=== PATIENT | male | born 1970 | race Two or more races ===

== ENCOUNTER 2023-09-26 20:48 | Inpatient (IN) | payer BC ==
[~2023-09-26] VITALS: Ht 167.6 cm; Wt 50.0 kg
[2023-09-26 21:31] LABS: EOSINOPHILS % (AUTO) 0 % (1.0-6.0); HEMATOCRIT 25.1 % (41-53); HEMOGLOBIN 8.4 g/dL (13.5-17.5); LYMPHOCYTES # (AUTO) 1.6 K/uL (1.0-4.8); LYMPHOCYTES % (AUTO) 12.2 % (22.0-44.0); MEAN CORPUSCULAR HEMOGLOBIN 27.5 pg (26.0-34.0); MEAN CORPUSCULAR HGB CONC 33.3 G/dL (31.0-37.0); MEAN CORPUSCULAR VOLUME 82 fL (80-100); MONOCYTES # (AUTO) 1.5 K/uL (0.1-1.0); MONOCYTES % (AUTO) 11.3 % (2.0-9.0); NEUTROPHILS # (AUTO) 9.9 K/uL (1.8-7.7); NEUTROPHILS % (AUTO) 76.5 % (40.0-70.0); PLATELET COUNT (AUTO) 498 K/uL (150-450); RED BLOOD CELL COUNT(AUTO) 3.05 MIL/uL (4.50-5.90); RED CELL DISTRIBUTION WIDTH 17.4 % (11.5-14.5); WHITE BLOOD COUNT (AUTO) 12.9 K/uL (4.5-11.0)
[2023-09-26 21:36] LABS: ANION GAP 9 mmol/L (8-16); CARBON DIOXIDE 27 mmol/L (22-29); CHLORIDE 93 mmol/L (98-107); CREATININE 1.22 mg/dL (0.60-1.30); GLOMERULAR FILTR. RATE CALC > 60 mL/min (>60); GLUCOSE,RANDOM 138 mg/dL (70-110); POTASSIUM 3.8 mmol/L (3.5-5.1); SODIUM SERUM 129 mmol/L (136-145); UREA NITROGEN, BLOOD 16 mg/dL (7-18)
[2023-09-26] MEDS: PANTOPRAZOLE SODIUM 80 MG in SODIUM CHLORIDE 0.9% 100 ML IV SCH ×2 (23:08→23:15)
[2023-09-26] MEDS: PANTOPRAZOLE SODIUM 40 MG/VIAL IVP ONE (23:08)
[2023-09-26] MEDS: SODIUM CHLORIDE 0.9% 1,000 ML IV ONE (23:09)
[2023-09-26] MEDS ORDERED: ACETAMINOPHEN 325 MG TABLET PO PRN (23:15)
[2023-09-26] MEDS ORDERED: ONDANSETRON HCL 4 MG/2 ML VIAL IVP PRN (23:15)
[2023-09-26 23:32] LABS: INR 1.4 (0.9-1.1); PROTHROMBIN TIME 14.9 SEC (9.4-11.6)
[2023-09-26 23:33] LABS: ALBUMIN 1.9 g/dL (3.4-5.0); BILIRUBIN,DIRECT 0.4 mg/dL (0.00-0.20); BILIRUBIN,TOTAL 0.8 mg/dL (0.1-1.0); TOTAL PROTEIN, SERUM 7.7 g/dL (6.4-8.2)
[2023-09-26] MEDS: CefTRIAXone SODIUM 250 MG in DEXTROSE 5%-WATER 50 ML IV ONE (23:50)
[2023-09-27] VITALS (14 sets, daily range): BP systolic 88–113; BP diastolic 54–72; PULSE 92–108; RESP 15–20; TEMP 98.2–99.7
[2023-09-27 00:35] LABS: BASOPHILS % (AUTO) 0.2 % (0.0-2.0); EOSINOPHILS % (AUTO) 0 % (1.0-6.0); HEMATOCRIT 23.1 % (41-53); HEMOGLOBIN 7.6 g/dL (13.5-17.5); LYMPHOCYTES # (AUTO) 1.5 K/uL (1.0-4.8); MEAN CORPUSCULAR HEMOGLOBIN 26.9 pg (26.0-34.0); MEAN CORPUSCULAR HGB CONC 32.7 G/dL (31.0-37.0); MEAN CORPUSCULAR VOLUME 82 fL (80-100); MONOCYTES # (AUTO) 1.3 K/uL (0.1-1.0); MONOCYTES % (AUTO) 10.1 % (2.0-9.0); NEUTROPHILS # (AUTO) 9.8 K/uL (1.8-7.7); NEUTROPHILS % (AUTO) 77.7 % (40.0-70.0); PLATELET COUNT (AUTO) 412 K/uL (150-450); RED BLOOD CELL COUNT(AUTO) 2.81 MIL/uL (4.50-5.90); RED CELL DISTRIBUTION WIDTH 17.5 % (11.5-14.5); WHITE BLOOD COUNT (AUTO) 12.6 K/uL (4.5-11.0)
[2023-09-27] MEDS: DOCUSATE SODIUM 100 MG CAPSULE PO SCH (09:00)
[2023-09-27] MEDS ORDERED: SODIUM CHLORIDE 0.9% 500 ML IV ONE (09:30)
[2023-09-27] MEDS ORDERED: SODIUM CHLORIDE 0.9% 1,000 ML ONE (09:32)
[2023-09-27 09:47] LABS: BASOPHILS % (AUTO) 0.1 % (0.0-2.0); EOSINOPHILS % (AUTO) 0 % (1.0-6.0); LYMPHOCYTES # (AUTO) 1.4 K/uL (1.0-4.8); LYMPHOCYTES % (AUTO) 10.5 % (22.0-44.0); MEAN CORPUSCULAR HEMOGLOBIN 27.1 pg (26.0-34.0); MEAN CORPUSCULAR HGB CONC 32.7 G/dL (31.0-37.0); MEAN CORPUSCULAR VOLUME 83 fL (80-100); MONOCYTES # (AUTO) 1.2 K/uL (0.1-1.0); MONOCYTES % (AUTO) 9.4 % (2.0-9.0); NEUTROPHILS # (AUTO) 10.6 K/uL (1.8-7.7); PLATELET COUNT (AUTO) 396 K/uL (150-450); RED BLOOD CELL COUNT(AUTO) 2.54 MIL/uL (4.50-5.90); RED CELL DISTRIBUTION WIDTH 17.8 % (11.5-14.5); WHITE BLOOD COUNT (AUTO) 13.2 K/uL (4.5-11.0)
[2023-09-27 10:13] LABS: ANION GAP 10 mmol/L (8-16); CALCIUM, TOTAL 8.1 mg/dL (8.8-10.5); CARBON DIOXIDE 26 mmol/L (22-29); CHLORIDE 97 mmol/L (98-107); CREATININE 0.95 mg/dL (0.60-1.30); GLOMERULAR FILTR. RATE CALC > 60 mL/min (>60); GLUCOSE,RANDOM 99 mg/dL (70-110); POTASSIUM 3.8 mmol/L (3.5-5.1); SODIUM SERUM 133 mmol/L (136-145); UREA NITROGEN, BLOOD 13 mg/dL (7-18)
[2023-09-27 10:14] LABS: HEMOGLOBIN 6.9 g/dL (13.5-17.5)
[2023-09-27] MEDS: SODIUM CHLORIDE 0.9% 1,000 ML IV ONE (10:49)
[2023-09-27] MEDS ORDERED: PROPOFOL 1% ISO-OSM 1000 MG/100 ML BOTTLE IV ONE (12:00)
[2023-09-27] MEDS ORDERED: LIDOCAINE/PF 2% 5 ML VIAL IM ONE (12:00)
[2023-09-27 12:35] LABS: APPEARANCE,URINE CLEAR (CLEAR); BILIRUBIN,URINE NEGATIVE (NEGATIVE); COLOR,URINE YELLOW (YELLOW); GLUCOSE, URINE (UA) NEGATIVE (NEGATIVE); KETONES,URINE NEGATIVE (NEGATIVE); LEUKOCYTE ESTERASE ,URINE NEGATIVE (NEGATIVE); NITRATE,URINE NEGATIVE (NEGATIVE); OCCULT BLOOD,URINE SMALL (NEGATIVE); PROTEIN,URINE 100-200,SEE CONFIRM mg/dL (NEGATIVE); UROBILINOGEN,URINE <=1.0 mg/dL (<=1.0)
[2023-09-27 12:56] LABS: SPECIFIC GRAVITIY, URINE > 1.030 (1.003-1.030)
[2023-09-27 13:00] LABS: BACTERIA,URINE Rare /HPF (None Seen); RBC,URINE 0-2 /HPF (0-2); WBC,URINE 0-2 /HPF (0-5)
[2023-09-27 13:01] LABS: SULFOSALICYLIC ACID,URINE 2+ (Negative)
[2023-09-27] MEDS: PEG 3350/NA SULF,BICARB,CL/KCL 4000 ML SOLUTION PO ONE (17:54)
[2023-09-27 22:42] LABS: BASOPHILS % (AUTO) 0.1 % (0.0-2.0); EOSINOPHILS % (AUTO) 0 % (1.0-6.0); HEMOGLOBIN 7.7 g/dL (13.5-17.5); LYMPHOCYTES # (AUTO) 1.1 K/uL (1.0-4.8); LYMPHOCYTES % (AUTO) 10.1 % (22.0-44.0); MEAN CORPUSCULAR HEMOGLOBIN 27.5 pg (26.0-34.0); MEAN CORPUSCULAR HGB CONC 33.4 G/dL (31.0-37.0); MEAN CORPUSCULAR VOLUME 82 fL (80-100); MONOCYTES % (AUTO) 9.1 % (2.0-9.0); NEUTROPHILS # (AUTO) 8.9 K/uL (1.8-7.7); NEUTROPHILS % (AUTO) 80.7 % (40.0-70.0); PLATELET COUNT (AUTO) 338 K/uL (150-450); RED BLOOD CELL COUNT(AUTO) 2.79 MIL/uL (4.50-5.90); RED CELL DISTRIBUTION WIDTH 16.8 % (11.5-14.5)
[2023-09-27 22:55] LABS: MAGNESIUM 2.5 mg/dL (1.80-2.40)
[2023-09-28] VITALS (9 sets, daily range): BP systolic 93–103; BP diastolic 56–66; PULSE 80–97; RESP 15–20; TEMP 98.1–99.4
[2023-09-28] MEDS ORDERED: FentaNYL CITRATE PF 100 MCG/2 ML VIAL ONE ×2 (08:10→13:28)
[2023-09-28] MEDS ORDERED: LIDOCAINE/PF 1% 30 ML VIAL ONE (08:11)
[2023-09-28] MEDS ORDERED: MIDAZOLAM HCL 2 MG/2 ML VIAL ONE (08:11)
[2023-09-28] MEDS ORDERED: SODIUM CHLORIDE 0.9% 1,000 ML ONE (09:41)
[2023-09-28 12:17] LABS: BASOPHILS % (AUTO) 0.1 % (0.0-2.0); EOSINOPHILS % (AUTO) 0 % (1.0-6.0); HEMATOCRIT 24.9 % (41-53); HEMOGLOBIN 8.1 g/dL (13.5-17.5); LYMPHOCYTES # (AUTO) 1.3 K/uL (1.0-4.8); LYMPHOCYTES % (AUTO) 11.8 % (22.0-44.0); MEAN CORPUSCULAR HEMOGLOBIN 26.8 pg (26.0-34.0); MEAN CORPUSCULAR HGB CONC 32.6 G/dL (31.0-37.0); MEAN CORPUSCULAR VOLUME 82 fL (80-100); MONOCYTES # (AUTO) 0.8 K/uL (0.1-1.0); MONOCYTES % (AUTO) 7.4 % (2.0-9.0); NEUTROPHILS # (AUTO) 8.9 K/uL (1.8-7.7); NEUTROPHILS % (AUTO) 80.7 % (40.0-70.0); PLATELET COUNT (AUTO) 370 K/uL (150-450); RED BLOOD CELL COUNT(AUTO) 3.03 MIL/uL (4.50-5.90); RED CELL DISTRIBUTION WIDTH 17.3 % (11.5-14.5); WHITE BLOOD COUNT (AUTO) 11.1 K/uL (4.5-11.0)
[2023-09-28] MEDS: DEXTROSE 5%-0.45% SODIUM CHL 1,000 ML IV SCH (12:32)
[2023-09-28] MEDS: SODIUM CHLORIDE 0.9% 1,000 ML IV ONE (12:34)
[2023-09-28] MEDS ORDERED: MIDAZOLAM HCL 5 MG/ML VIAL ONE (13:28)
[2023-09-28 13:31] LABS: GLUCOMETER DEV NAME(LOC) 5S.1B; GLUCOSE,POINT OF CARE 84 MG/DL (70-110)
[2023-09-29 00:21] VITALS: BP 106/60; PULSE 86; RESP 15; TEMP 98.2
[2023-09-29] MEDS: DEXTROSE 5%-0.45% SODIUM CHL 1,000 ML IV ONE (01:51)
[2023-09-29 05:17] VITALS: BP 93/60; PULSE 78; RESP 16; TEMP 98.8
[2023-09-29 07:51] VITALS: BP 93/55; PULSE 83; RESP 16; TEMP 98.4
[2023-09-29 07:56] LABS: ANION GAP 8 mmol/L (8-16); CARBON DIOXIDE 25 mmol/L (22-29); CHLORIDE 101 mmol/L (98-107); CREATININE 0.81 mg/dL (0.60-1.30); GLOMERULAR FILTR. RATE CALC > 60 mL/min (>60); GLUCOSE,RANDOM 99 mg/dL (70-110); POTASSIUM 3.1 mmol/L (3.5-5.1); SODIUM SERUM 134 mmol/L (136-145); UREA NITROGEN, BLOOD 9 mg/dL (7-18)
[2023-09-29 07:57] LABS: BASOPHILS % (AUTO) 0.2 % (0.0-2.0); EOSINOPHILS % (AUTO) 0.1 % (1.0-6.0); HEMATOCRIT 24.7 % (41-53); HEMOGLOBIN 8.2 g/dL (13.5-17.5); LYMPHOCYTES # (AUTO) 1.8 K/uL (1.0-4.8); LYMPHOCYTES % (AUTO) 16.6 % (22.0-44.0); MEAN CORPUSCULAR HEMOGLOBIN 27.4 pg (26.0-34.0); MEAN CORPUSCULAR HGB CONC 33.1 G/dL (31.0-37.0); MEAN CORPUSCULAR VOLUME 83 fL (80-100); MONOCYTES # (AUTO) 0.8 K/uL (0.1-1.0); MONOCYTES % (AUTO) 7.9 % (2.0-9.0); NEUTROPHILS # (AUTO) 8.1 K/uL (1.8-7.7); NEUTROPHILS % (AUTO) 75.2 % (40.0-70.0); PLATELET COUNT (AUTO) 361 K/uL (150-450); RED BLOOD CELL COUNT(AUTO) 2.98 MIL/uL (4.50-5.90); RED CELL DISTRIBUTION WIDTH 17.6 % (11.5-14.5); WHITE BLOOD COUNT (AUTO) 10.7 K/uL (4.5-11.0)
[2023-09-29] MEDS ORDERED: CHLORHEXIDINE GLUCONATE 2% TOWELETTE [2'S/6'S] TP ONE (08:30)
[2023-09-29] MEDS ORDERED: SODIUM CHLORIDE 0.9% 1,000 ML ONE ×2 (08:44→08:45)
[2023-09-29] MEDS ORDERED: SODIUM CL IRRIG SOLN BAG 3,000 ML IRRIG ONE (08:44)
[2023-09-29] MEDS: ETHYL ALCOHOL 62% ANTISEPTIC NASAL SANITIZER 0.6 ML AMPUL NASAL ONE (09:42)
[2023-09-29] MEDS ORDERED: RINGERS SOLUTION,LACTATED 1,000 ML IV ONE (10:00)
[2023-09-29 12:02] VITALS: BP 106/68; PULSE 86; RESP 18; TEMP 98.3
[2023-09-29] MEDS: PEG 3350/NA SULF,BICARB,CL/KCL 4000 ML SOLUTION PO ONE (12:59)
[2023-09-29] MEDS ORDERED: POTASSIUM CHL 10 MEQ/WATER 50 ML IV PRN (14:00)
[2023-09-29] MEDS: RINGERS SOLUTION,LACTATED 1,000 ML IV ONE (15:00)
[2023-09-29] MEDS: POTASSIUM CHLORIDE 20 MEQ ER TABLET PO PRN (15:00)
[2023-09-29 15:45] VITALS: BP 99/67; PULSE 91; RESP 16; TEMP 98.1
[2023-09-29 20:00] VITALS: BP 106/70; PULSE 93; RESP 18; TEMP 99.2
[2023-09-30] VITALS (21 sets, daily range): BP systolic 91–113; BP diastolic 59–77; PULSE 62–89; RESP 14–18; TEMP 97.7–98.4; O2SAT 98
[2023-09-30] MEDS: DEXTROSE 5%-0.45% SODIUM CHL 1,000 ML IV SCH (00:24)
[2023-09-30] MEDS ORDERED: RINGERS SOLUTION,LACTATED 1,000 ML IV ONE (06:19)
[2023-09-30] MEDS ORDERED: FentaNYL CITRATE PF 100 MCG/2 ML VIAL ONE (07:18)
[2023-09-30] MEDS ORDERED: ROCURONIUM BROMIDE 10 MG/ML 5 ML VIAL ONE (07:18)
[2023-09-30] MEDS ORDERED: LIDOCAINE/PF 2% 5 ML VIAL ONE (07:18)
[2023-09-30] MEDS ORDERED: TRANEXAMIC ACID 1,000 MG/10 ML VIAL ONE (07:18)
[2023-09-30] MEDS ORDERED: DEXAMETHASONE SOD PHOS 4 MG/ML VIAL ONE (07:18)
[2023-09-30] MEDS ORDERED: MIDAZOLAM HCL 2 MG/2 ML VIAL ONE (07:18)
[2023-09-30] MEDS ORDERED: ACETAMINOPHEN/ISO-OSM 1000 MG/100 ML BOTTLE IV ONE (07:18)
[2023-09-30] MEDS ORDERED: PROPOFOL 1% 20 ML VIAL IVP ONE (07:18)
[2023-09-30] MEDS ORDERED: ONDANSETRON HCL 4 MG/2 ML VIAL ONE (07:18)
[2023-09-30] MEDS ORDERED: SUCCINYLCHOLINE CHLORIDE 20 MG/ML 10 ML VIAL ONE (07:18)
[2023-09-30] MEDS ORDERED: SODIUM CL IRRIG SOLN BAG 3,000 ML IRRIG ONE (07:58)
[2023-09-30] MEDS: ETHYL ALCOHOL 62% ANTISEPTIC NASAL SANITIZER 0.6 ML AMPUL NASAL ONE (08:00)
[2023-09-30] MEDS: RINGERS SOLUTION,LACTATED 1,000 ML IV ONE (08:02)
[2023-09-30] MEDS: CHLORHEXIDINE GLUCONATE 2% TOWELETTE [2'S/6'S] TP ONE (08:02)
[2023-09-30] MEDS ORDERED: NOREPINEPHRINE 8 MG/0.9 % NACL 250 ML IV PRN (09:00)
[2023-09-30] MEDS: LIDOCAINE 2%/EPI 1:200,000/PF 20 ML VIAL ONE (09:30)
[2023-09-30] MEDS ORDERED: PHENYLEPHRINE 200 MG/D5%-WATER 250 ML IV PRN (09:30)
[2023-09-30] MEDS: BUPIVACAINE HCL/PF 0.5% 30 ML VIAL ONE (09:30)
[2023-09-30] MEDS ORDERED: MEPERIDINE-PF 25 MG/ML VIAL IVP PRN (12:15)
[2023-09-30] MEDS ORDERED: FentaNYL CITRATE PF 100 MCG/2 ML VIAL IVP PRN (12:15)
[2023-09-30] MEDS: RINGERS SOLUTION,LACTATED 1,000 ML IV SCH (13:30)
[2023-09-30] MEDS ORDERED: ONDANSETRON HCL 4 MG/2 ML VIAL IVP PRN (13:30)
[2023-09-30] MEDS ORDERED: MORPHINE SULFATE 2 MG/ML SYRINGE IVP PRN (13:30)
[2023-09-30] MEDS ORDERED: MORPHINE SULFATE 4 MG/ML SYRINGE IVP PRN (13:30)
[2023-09-30] MEDS ORDERED: IBUPROFEN 800 MG TABLET PO PRN (13:30)
[2023-09-30] MEDS ORDERED: HYDROmorphone HCL 2 MG/ML SYRINGE ONE (14:08)
[2023-09-30] MEDS: HYDROmorphone HCL 2 MG/ML SYRINGE IVP PRN (14:08)
[2023-09-30 14:31] LABS: ABG BASE EXCESS -0.2 mmol/L (-2.0-3.0); ABG CARBOXYHEMOGLOBIN 0.6 % (0.0-1.5); ABG HCO3 24.4 mmol/L (22.0-26.0); ABG METHEMOGLOBIN 0.3 % (0.0-1.5); ABG OXYGEN CONTENT 8.9 mL/dL (15.0-23.0); ABG OXYGEN SATURATION 94.2 % (95.0-98.0); ABG OXYHEMOGLOBIN 93.4 % (94.0-100.0); ABG PCO2 35 mmHg (35-45); ABG PH 7.447 (7.35-7.450); PO2, ARTERIAL BG 72.5 mmHg (84.0-92.0); SOURCE, BLOOD GAS ARTERIAL; TEMPERATURE, FAHRENHEIT, BG 98.1 FAHREN (96.0-98.6)
[2023-09-30 14:35] LABS: ABG TOTAL HEMOGLOBIN 6.7 G/dL (12.0-18.0); O2 DEVICE,BLOOD GAS ROOM AIR (ROOM AIR); SITE, BLOOD GAS ARTERIAL LINE
[2023-09-30] MEDS: CeFAZolin 1 GM/DEXTROSE 50 ML IV SCH (17:11)
[2023-09-30] MEDS ORDERED: SODIUM CHLORIDE 0.9% 250 ML IV ONE (17:21)
[2023-09-30] MEDS: MetroNIDAZOLE 500 MG/NACL 100 ML IV SCH (17:56)
[2023-09-30] MEDS: OXYGEN THERAPY IH SCH (20:00)
[2023-09-30] MEDS ORDERED: SODIUM CHLORIDE 0.9% 500 ML IV ONE (20:08)
[2023-09-30] MEDS: PANTOPRAZOLE SODIUM 40 MG/VIAL IVP SCH (20:42)
[2023-10-01] VITALS (8 sets, daily range): BP systolic 93–102; BP diastolic 58–70; PULSE 69–83; RESP 18–21; TEMP 97.9–99
[2023-10-01 07:29] LABS: BASOPHILS % (AUTO) 0.3 % (0.0-2.0); EOSINOPHILS % (AUTO) 0 % (1.0-6.0); HEMATOCRIT 29.9 % (41-53); HEMOGLOBIN 10.1 g/dL (13.5-17.5); LYMPHOCYTES # (AUTO) 1.7 K/uL (1.0-4.8); LYMPHOCYTES % (AUTO) 16.3 % (22.0-44.0); MEAN CORPUSCULAR HEMOGLOBIN 28.2 pg (26.0-34.0); MEAN CORPUSCULAR HGB CONC 33.7 G/dL (31.0-37.0); MEAN CORPUSCULAR VOLUME 84 fL (80-100); MONOCYTES # (AUTO) 0.8 K/uL (0.1-1.0); MONOCYTES % (AUTO) 7.9 % (2.0-9.0); NEUTROPHILS # (AUTO) 7.9 K/uL (1.8-7.7); NEUTROPHILS % (AUTO) 75.5 % (40.0-70.0); PLATELET COUNT (AUTO) 406 K/uL (150-450); RED BLOOD CELL COUNT(AUTO) 3.58 MIL/uL (4.50-5.90); RED CELL DISTRIBUTION WIDTH 17.5 % (11.5-14.5); WHITE BLOOD COUNT (AUTO) 10.4 K/uL (4.5-11.0)
[2023-10-02] VITALS (7 sets, daily range): BP systolic 91–114; BP diastolic 61–73; PULSE 76–104; RESP 18–19; TEMP 98.3–100.3
[2023-10-02] MEDS: ACETAMINOPHEN 500 MG TABLET PO PRN (23:25)
[2023-10-03 04:09] VITALS: BP 111/70; PULSE 100; RESP 18; TEMP 98.5
[2023-10-03 07:40] VITALS: BP 115/76; PULSE 108; RESP 19; TEMP 100.1
[2023-10-03 11:02] VITALS: BP 104/74; PULSE 89; RESP 19; TEMP 98.1
[2023-10-03] MEDS: HYDROCODONE/ACETAMINOPHEN 5-325 MG TABLET PO PRN (14:32)
[2023-10-03 15:55] VITALS: BP 109/72; PULSE 104; RESP 20; TEMP 98.8
[2023-10-03 19:28] VITALS: BP 121/76; PULSE 110; RESP 18; TEMP 98.8
[2023-10-03 23:31] VITALS: BP 109/67; PULSE 108; RESP 19; TEMP 101.2
[2023-10-04 03:23] VITALS: BP 106/70; PULSE 104; RESP 18; TEMP 98.3
[2023-10-04 07:39] VITALS: BP 114/71; PULSE 109; RESP 18; TEMP 98.8
[2023-10-04 11:39] VITALS: BP 118/68; PULSE 106; RESP 18; TEMP 98
[2023-10-04 12:00] VITALS: BP 109/70; PULSE 106; RESP 18; TEMP 98.3
[2023-10-04] MEDS ORDERED: PANT-31 PO (15:37)
[2023-10-04] MEDS ORDERED: ONDA-104 PO (15:37)
[2023-10-04] MEDS ORDERED: HYDR-4061 PO (15:37)
[2023-10-04 16:04] VITALS: BP 105/73; PULSE 104; RESP 18; TEMP 98.3
== END 2023-10-04 18:15 | disposition home or self-care (01) | DRG 329 ==
LOC: EMS 21:12 → 5N 09-27 02:29 → 5S 09-27 13:30 → 5N 10-02 09:55
PROVIDERS: ADMIT Internal Medicine; ATTEND Internal Medicine
PROC: 0DB68ZX Excision of Stomach, Via Natural or Artificial Opening Endoscopic, Diagnostic (ICD-10-PCS; 2023-09-27)
PROC: 0DBN8ZX Excision of Sigmoid Colon, Via Natural or Artificial Opening Endoscopic, Diagnostic (ICD-10-PCS; 2023-09-28)
PROC: 0FB13ZX Excision of Right Lobe Liver, Percutaneous Approach, Diagnostic (ICD-10-PCS; principal; 2023-09-28 14:30)
PROC: 0DBM4ZZ Excision of Descending Colon, Percutaneous Endoscopic Approach (ICD-10-PCS; 2023-09-30)
PROC: 30233N1 Transfusion of Nonautologous Red Blood Cells into Peripheral Vein, Percutaneous Approach (ICD-10-PCS; 2023-09-30)
DX: C18.6 Malignant neoplasm of descending colon (principal); E43 Unspecified severe protein-calorie malnutrition; E87.1 Hypo-osmolality and hyponatremia; Z68.1 Body mass index [BMI] 19.9 or less, adult; R64 Cachexia; R65.10 Systemic inflammatory response syndrome (SIRS) of non-infectious origin without acute organ dysfunction; D62 Acute posthemorrhagic anemia; K29.20 Alcoholic gastritis without bleeding; D72.829 Elevated white blood cell count, unspecified; F10.20 Alcohol dependence, uncomplicated; K76.9 Liver disease, unspecified; Z93.3 Colostomy status
CPT/HCPCS: 36600; 47000; 74177; 76942; 80048; 80076; 81001; 81002; 82105; 82271; 82378; 82805; 82962; 83735; 83930; 83935; 84100; 84132; 84300; 85025; 85610; 85730; 86301; 86850; 86900; 86901; 86923; 87045; 88305; 88309; 88312; 88342; 89055; 93005; 99285; C9113; G0238; G0378; G0480; J0131; J0330; J0690; J0696; J1100; J1170; J2250; J2370; J2405; J2704; J3010; J3490; J7030; J7040; J7050; J7060; J7120; P9016; Q9967